=== PATIENT | female | born 1975 | race Caucasian/White ===

== ENCOUNTER 2017-02-01 06:39 | Emergency (ER) | payer MEDICAID ==
[~2017-02-01] VITALS: Ht 175.3 cm; Wt 139.0 kg
[2017-02-01 07:04] VITALS: BP 111/65
--- NOTE | 2017-02-01 07:09 | NUR ---
Patient to bed 08.
--- NOTE | 2017-02-01 07:10 | NUR ---
41/f bib self C/O PAINFUL URINATION,FOR 5 DAYS AND LEFT EYE PAIN FOR 3 DAYS. DENIES N/V/D; SKIN IS PINK/WARM/DRY; AAOX4 WITH EVEN AND STEADY GAIT; LUNGS CLEAR BL; HR EVEN AND REGULAR; PATIENT STATES PAIN OF 3/10 AT THIS TIME; VSS; PATIENT POSITIONED FOR COMFORT; HOB ELEVATED; BEDRAILS UP X2; BED DOWN. ER MD MADE AWARE OF PT STATUS.
--- NOTE | 2017-02-01 07:12 | NUR ---
Patient being evaluated bydr schroeder at bedside.
--- NOTE | 2017-02-01 07:13 | NUR ---
vision acuity both eyes 20/20 , left eye 20/20 , rt eye 20/20
[2017-02-01] MEDS ORDERED: KETOROLAC 60 MG/2 ML VIAL IM ONE (07:20)
[2017-02-01 07:47] VITALS: BP 119/81
--- NOTE | 2017-02-01 07:47 | NUR ---
Patient discharged with v/s stable. Written and verbal after care instructions given and explained. Patient alert, oriented and verbalized understanding of instructions. Ambulatory with steady gait. All questions addressed prior to discharge. ID band removed. Patient advised to follow up with PMD. Rx of MOTRIN & CIPRO given. Patient educated on indication of medication including possible reaction and side effects. Opportunity to ask questions provided and answered.
== END 2017-02-01 07:47 | disposition home or self-care (01) ==
LOC: MED 06:39
DX: N39.0 Urinary tract infection, site not specified (principal); R51 Headache; Z88.0 Allergy status to penicillin; Z87.442 Personal history of urinary calculi
CPT/HCPCS: 81002; 96372; 99283; J1885

== ENCOUNTER 2017-03-03 06:26 | Emergency (ER) | payer MEDICAID ==
[~2017-03-03] VITALS: Ht 175.3 cm; Wt 138.3 kg
[2017-03-03 06:32] VITALS: BP 114/77
--- NOTE | 2017-03-03 06:42 | NUR ---
AMBULATED TO ER BED 4
--- NOTE | 2017-03-03 06:50 | NUR ---
41/F CAME IN W C/O 11/21 DIFFUSED ABD PAIN, CONSTANT, GRADUALLY WORSERNING X 2 WEEKS. PT ALSO REPORTS RUNNY NOSE, PRODUCTIVE COUGHING WITH WHITE SPUTUM AND HEADACHE X 4 DAYS. ALL LUNG SOUNDS CBTA, 20RR EVEN AND UNLABORED. REPORTS NAUSEA BUT NO V/D/ FEVER, ABD SOFT, ROUND, -TENDERNESS. DENIES HEMATURIA. HX KIDNEY STONES, UTI. DENIES RX. REPORTS TAKING MOTRIN LAST NIGHT 2300 WITH NO RELIEF OF SYMPTOMS.
--- NOTE | 2017-03-03 07:12 | NUR ---
Pt report given to SHADI DILL. Transfer of care at this time.
--- NOTE | 2017-03-03 07:16 | NUR ---
PT RESTING ON BED;NO ACUTE DISTRESS NOTED;WILL CONTINUE TO MONITOR PT.
--- NOTE | 2017-03-03 07:20 | NUR ---
CORY WE[facility] AT BEDSIDE.
--- NOTE | 2017-03-03 07:33 | NUR ---
SPECIMEN FOR INFLUENZA A AND B COLLECTED;PT TOLERATED WELL PROCEDURE.
[2017-03-03 07:34] LABS: APPEARANCE,URINE HAZY (CLEAR); BILIRUBIN,URINE NEGATIVE (NEGATIVE); BLOOD, URINE TRACE-I (NEGATIVE); COLOR,URINE YELLOW (YELLOW); LEUKOCYTE ESTERASE ,URINE 2+ (NEGATIVE); NITRITE, URINE NEGATIVE (NEGATIVE); UGLUCOSE NEGATIVE (NEGATIVE)
--- NOTE | 2017-03-03 07:43 | NUR ---
XRAY AT BEDSIDE.
[2017-03-03 07:51] LABS: RBC,URINE 0-5 (RARE) /HPF (0-5)
--- NOTE | 2017-03-03 08:06 | NUR ---
Portillo bauman in ED - 03/03/17 at 0908 by BRIELLE US at bedside.
[2017-03-03] MEDS ORDERED: NACL 0.9% 1,000 ML IV ONE (08:10)
--- NOTE | 2017-03-03 08:55 | NUR ---
US at bedside.
--- NOTE | 2017-03-03 09:11 | NUR ---
PT AMBULATED TO THE RESTROOM;
--- NOTE | 2017-03-03 09:47 | NUR ---
Patient discharged with v/s stable. Written and verbal after care instructions given and explained. Patient alert, oriented and verbalized understanding of instructions. Ambulatory with steady gait. All questions addressed prior to discharge. ID band removed. Patient advised to follow up with PMD. Rx of MACROBID,PROMETHAZINE AND MOTRIN given. Patient educated on indication of medication including possible reaction and side effects. Opportunity to ask questions provided and answered.
[2017-03-03 09:48] VITALS: BP 124/75
== END 2017-03-03 09:47 | disposition home or self-care (01) ==
LOC: MED 06:26
DX: N83.202 Unspecified ovarian cyst, left side (principal); J06.9 Acute upper respiratory infection, unspecified; N39.0 Urinary tract infection, site not specified; Z87.442 Personal history of urinary calculi; Z88.0 Allergy status to penicillin
CPT/HCPCS: 36415; 71010; 76856; 81001; 81025; 87086; 87804; 96360; 99285; J7030; Q0092

== ENCOUNTER 2018-07-03 14:17 | Emergency (ER) | payer MEDICAID ==
[~2018-07-03] VITALS: Ht 175.3 cm; Wt 97.5 kg
[2018-07-03 14:32] VITALS: BP 121/68
--- NOTE | 2018-07-03 14:35 | NUR ---
AFTER PROVIDING URINE PT AMBULATES BACK TO THE LOBBY
--- NOTE | 2018-07-03 16:05 | NUR ---
PT TO ER BED 3
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
--- NOTE | 2018-07-03 17:03 | NUR ---
PT BEING EVALUATED BY ER AT THIS TIME.
[2018-07-03] MEDS ORDERED: IBUPROFEN 800 MG TAB PO ONE (17:15)
[2018-07-03] MEDS ORDERED: traMADol 50 MG TAB PO ONE (17:15)
--- NOTE | 2018-07-03 17:55 | NUR ---
PO MEDS GIVEN-NADR AT THIS TIME
--- NOTE | 2018-07-03 19:16 | NUR ---
REPORT GIVEN TO ALLERGY AND IMMUNOLOGY CHIEF RN.
[2018-07-03 19:38] VITALS: BP 120/75
--- NOTE | 2018-07-03 19:38 | NUR ---
Patient discharged with v/s stable. Written and verbal after care instructions given and explained. Patient alert, oriented and verbalized understanding of instructions. Ambulatory with steady gait. All questions addressed prior to discharge. ID band removed. Patient advised to follow up with PMD. Rx of ANAPROX given. Patient educated on indication of medication including possible reaction and side effects. Opportunity to ask questions provided and answered.
== END 2018-07-03 19:38 | disposition home or self-care (01) ==
LOC: MED 14:17
DX: S43.402A Unspecified sprain of left shoulder joint, initial encounter (principal); S13.9XXA Sprain of joints and ligaments of unspecified parts of neck, initial encounter; S29.011A Strain of muscle and tendon of front wall of thorax, initial encounter; Z88.0 Allergy status to penicillin; Z87.442 Personal history of urinary calculi; V89.2XXA Person injured in unspecified motor-vehicle accident, traffic, initial encounter; Y93.89 Activity, other specified; Y92.414 Local residential or business street as the place of occurrence of the external cause; Y99.8 Other external cause status
CPT/HCPCS: 71046; 72040; 73030; 81025; 99283

== ENCOUNTER 2018-11-28 06:18 | Emergency (ER) | payer MEDICAID ==
[~2018-11-28] VITALS: Ht 175.3 cm; Wt 112.9 kg
[2018-11-28 06:20] VITALS: BP 106/67
[2018-11-28 06:48] VITALS: BP 106/67
== END 2018-11-28 06:48 | disposition home or self-care (01) ==
LOC: MED 06:18
DX: J32.9 Chronic sinusitis, unspecified (principal); H10.9 Unspecified conjunctivitis; N39.0 Urinary tract infection, site not specified; Z87.448 Personal history of other diseases of urinary system; Z88.0 Allergy status to penicillin
CPT/HCPCS: 99283

== ENCOUNTER 2018-12-02 05:58 | Emergency (ER) | payer MEDICAID ==
[~2018-12-02] VITALS: Ht 175.3 cm; Wt 112.0 kg
[2018-12-02 06:02] VITALS: BP 117/78
--- NOTE | 2018-12-02 06:07 | NUR ---
PT AMBULATED TO BED 11. PROVIDING URINE.
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
--- NOTE | 2018-12-02 07:12 | NUR ---
TRANSFER OF CARE AND REPORT GIVEN TO ANIYAH CLAYTON
--- NOTE | 2018-12-02 07:32 | NUR ---
DR ASTUDILLO AT BEDSIDE
[2018-12-02] MEDS ORDERED: FLUORESCEIN OPTH STRIP 0.6 MG OP ONE (07:40)
[2018-12-02] MEDS ORDERED: TETRACAINE HCL/PF 0.5% OPTH 4 ML BTL OP ONE (07:40)
[2018-12-02 07:57] LABS: APPEARANCE,URINE CLEAR (CLEAR); BILIRUBIN,URINE NEGATIVE (NEGATIVE); BLOOD, URINE NEGATIVE (NEGATIVE); COLOR,URINE YELLOW (YELLOW); LEUKOCYTE ESTERASE ,URINE NEGATIVE (NEGATIVE); NITRITE, URINE NEGATIVE (NEGATIVE); UGLUCOSE NEGATIVE (NEGATIVE)
[2018-12-02 08:12] LABS: RBC,URINE 0-5 /HPF (0-5); WBC,URINE 0-5 /HPF (0-5)
[2018-12-02] MEDS ORDERED: oxyCODONE/APAP 5/325 MG 1 TAB TAB PO ONE (08:25)
[2018-12-02 09:37] VITALS: BP 119/80
--- NOTE | 2018-12-02 09:37 | NUR ---
Patient discharged with v/s stable. Written and verbal after care instructions given and explained. Patient alert, oriented and verbalized understanding of instructions. Ambulatory with steady gait. All questions addressed prior to discharge. ID band removed. Patient advised to follow up with PMD. Rx of NORCO, AUGMENTIN, ERYTHROMYCIN, ACYCLOVIR given. PT INSTRUCTED ON HOW TO APPLY OINTMENT INTO EYE. INSTRUCTED TO NOT DRIVE AFTER TAKING NORCO. Patient educated on indication of medication including possible reaction and side effects. Opportunity to ask questions provided and answered.
== END 2018-12-02 07:37 | disposition home or self-care (01) ==
LOC: MED 05:58
DX: S05.02XA Injury of conjunctiva and corneal abrasion without foreign body, left eye, initial encounter (principal); S05.01XA Injury of conjunctiva and corneal abrasion without foreign body, right eye, initial encounter; H10.9 Unspecified conjunctivitis; L03.213 Periorbital cellulitis; X58.XXXA Exposure to other specified factors, initial encounter; Y93.89 Activity, other specified; Y92.89 Other specified places as the place of occurrence of the external cause; Y99.8 Other external cause status
CPT/HCPCS: 81001; 81025; 87086; 99284

== ENCOUNTER 2018-12-28 18:18 | Emergency (ER) | payer MEDICAID ==
[~2018-12-28] VITALS: Ht 175.3 cm; Wt 112.6 kg
--- NOTE | 2018-12-28 18:39 | NUR ---
PT AMBULATED TO BED 02.
[2018-12-28 18:49] VITALS: BP 119/59
[2018-12-28] MEDS ORDERED: FLUORESCEIN OPTH STRIP 0.6 MG OP ONE (19:20)
[2018-12-28] MEDS ORDERED: TETRACAINE HCL/PF 0.5% OPTH 4 ML BTL OP ONE (19:20)
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
--- NOTE | 2018-12-28 20:09 | NUR ---
PA AT THE BEDSIDE . PERFORMING BEDSIDE PROCEDURE FOR THE EYE .
[2018-12-28] MEDS ORDERED: IBUPROFEN 600 MG TAB PO ONE (20:20)
[2018-12-28 20:35] VITALS: BP 123/51
--- NOTE | 2018-12-28 20:35 | NUR ---
Patient discharged with v/s stable. Written and verbal after care instructions given and explained. Patient alert, oriented and verbalized understanding of instructions. Ambulatory with steady gait. All questions addressed prior to discharge. ID band removed. Patient advised to follow up with PMD. Rx of POLYTRIM OPTHALMIC SOLUTION given. Patient educated on indication of medication including possible reaction and side effects. Opportunity to ask questions provided and answered.
== END 2018-12-28 20:35 | disposition home or self-care (01) ==
LOC: MED 18:18
DX: S05.01XA Injury of conjunctiva and corneal abrasion without foreign body, right eye, initial encounter (principal); H10.9 Unspecified conjunctivitis; Z87.448 Personal history of other diseases of urinary system; X58.XXXA Exposure to other specified factors, initial encounter; Y92.89 Other specified places as the place of occurrence of the external cause; Y93.89 Activity, other specified; Y99.8 Other external cause status
CPT/HCPCS: 99284

== ENCOUNTER 2020-01-25 09:27 | Emergency (ER) | payer MEDICAID ==
[~2020-01-25] VITALS: Ht 175.3 cm; Wt 115.7 kg
[2020-01-25 09:33] VITALS: BP 111/68
--- NOTE | 2020-01-25 10:03 | NUR ---
44 Y/O FEMALE PT C/O RT EYE REDNESS, TEARING, GREENISH DISCHARGE, FOREIGN BODY SENSATION, AND BURNING PAIN X3 DAYS . DENIES BLURRY OR DOUBLE VISION. DENIES TRAUMA OR INJURY TO EYES. OD: 20/50 OS: 20/20 OU: 20/20 PMH: DENIES MEDS: DENIES
[2020-01-25] MEDS ORDERED: TETRACAINE HCL/PF 0.5% OPTH 4 ML BTL ONE (10:27)
[2020-01-25] MEDS ORDERED: FLUORESCEIN OPTH STRIP 1 MG ONE (10:27)
[2020-01-25] MEDS ORDERED: FLUORESCEIN OPTH STRIP 1 MG OP ONE (10:30)
[2020-01-25] MEDS ORDERED: TETRACAINE HCL/PF 0.5% OPTH 4 ML BTL OP ONE (10:30)
[2020-01-25] MEDS ORDERED: TOMOMETER 1 DEV DEV MC ONE (10:48)
[2020-01-25 10:54] VITALS: BP 111/68
--- NOTE | 2020-01-25 10:54 | NUR ---
Patient discharged with v/s stable. Written and verbal after care instructions given and explained. Patient alert, oriented and verbalized understanding of instructions. Ambulatory with steady gait. All questions addressed prior to discharge. ID band removed. Patient advised to follow up with PMD. Rx of ciprofloxacin hydrochloride given. Patient educated on indication of medication including possible reaction and side effects. Opportunity to ask questions provided and answered.
== END 2020-01-25 10:54 | disposition home or self-care (01) ==
LOC: MED 09:27
DX: S05.00XA Injury of conjunctiva and corneal abrasion without foreign body, unspecified eye, initial encounter (principal); H10.33 Unspecified acute conjunctivitis, bilateral; N28.9 Disorder of kidney and ureter, unspecified; X58.XXXA Exposure to other specified factors, initial encounter; Y93.89 Activity, other specified; Y92.89 Other specified places as the place of occurrence of the external cause; Y99.8 Other external cause status
CPT/HCPCS: 99283

== ENCOUNTER 2020-06-08 07:11 | Emergency (ER) | payer MEDICAID ==
[~2020-06-08] VITALS: Ht 152.4 cm; Wt 95.3 kg
[2020-06-08 07:15] VITALS: BP 136/109
[2020-06-08 07:19] VITALS: BP 143/64
--- NOTE | 2020-06-08 07:26 | NUR ---
PATIENT AMBULATED TO BED 4.
--- NOTE | 2020-06-08 07:31 | NUR ---
xray at bedside
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
[2020-06-08] MEDS ORDERED: NAPR-54 PO (08:09)
[2020-06-08] MEDS ORDERED: NAPR-1003 PO (08:11)
[2020-06-08 09:05] VITALS: BP 127/79
== END 2020-06-08 09:09 | disposition home or self-care (01) ==
LOC: MED 07:22
DX: M25.511 Pain in right shoulder (principal); Z87.442 Personal history of urinary calculi; Z79.899 Other long term (current) drug therapy; W22.8XXA Striking against or struck by other objects, initial encounter; Y93.89 Activity, other specified; Y92.89 Other specified places as the place of occurrence of the external cause; Y99.8 Other external cause status
CPT/HCPCS: 73030; 99283